=== PATIENT | male | born 1985 | race Two or more races ===

== ENCOUNTER 2018-12-20 18:07 | Emergency (ER) | payer SELFPAY ==
[2018-12-20] MEDS ORDERED: ACETAMINOPHEN 325 MG TABLET PO ONE (19:04)
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
[2018-12-20 19:38] VITALS: BP 112/78
--- NOTE | 2018-12-20 19:53 | RADIOLOGY REPORT (SQ) ---
EXAM DESCRIPTION: CT HEAD WITHOUT; CT FACIAL AREA WITHOUT COMPLETED DATE/TIME: 12/20/2018 7:42 pm REASON FOR STUDY: head trauma; facial trauma COMPARISON: None. TECHNIQUE: Axial images acquired through the brain and facial bones without intravenous contrast. I mages reviewed with bone, brain and subdural windows. Additional sagittal and coronal reconstruction s were generated. Images stored on PACS. All CT scanners at this facility use dose modulation, iterative reconstruction, and/or weight based d osing when appropriate to reduce radiation dose to as low as reasonably achievable (ALARA). [facility]: Dose Right [facility]: CareDose [facility]: Dose Right [facility]: Teradose 4D [facility]: [employer] RADIATION DOSE: CT Rad equipment meets quality standard of care and radiation dose reduction techniq ues were employed. CTDIvol: 53.2 mGy. DLP: 1044 mGy-cm.; CT Rad equipment meets quality standard of c are and radiation dose reduction techniques were employed. CTDIvol: 30.4 mGy. DLP: 606 mGy-cm. mGy. LIMITATIONS: None. FINDINGS: VENTRICLES: Normal size and contour. CEREBRUM: No masses. No hemorrhage. No midline shift. No evidence for acute infarction. Normal gra y/white matter differentiation. No areas of low density in the white matter. CEREBELLUM: No masses. No hemorrhage. No alteration of density. No evidence for acute infarction. EXTRAAXIAL SPACES: No fluid collections. No masses. ORBITS AND GLOBE: No intra- or extraconal masses. Normal contour of globe without masses. CALVARIUM: No fracture. FACIAL BONES: No fracture or dislocation. PARANASAL SINUSES: There is extensive bilateral maxillary sinus, nasal cavity, and ethmoid air cell m ucosal and bony thickening. SOFT TISSUES: No mass or hematoma. OTHER: No other significant finding. IMPRESSION: 1. No acute intracranial pathology. 2. No fracture dislocation of the facial bones. 3. Chronic paranasal sinus disease. EVIDENCE OF ACUTE STROKE: NO. COMMENT: Quality ID # [id number]: Final reports with documentation of one or more dose reduction techniques (e.g., Automated exposure control, adjustment of the mA and/or kV according to patient size, use of iterative reconstruction technique) TECHNICAL DOCUMENTATION: JOB ID: [id number] [employer]- All Rights Reserved Reading location - IP/workstation name: [email or web address]
== END 2018-12-20 20:30 | disposition home or self-care (01) ==
LOC: ER 18:07
DX: S09.90XA Unspecified injury of head, initial encounter (principal); S09.93XA Unspecified injury of face, initial encounter; F10.920 Alcohol use, unspecified with intoxication, uncomplicated; Y00.XXXA Assault by blunt object, initial encounter
CPT/HCPCS: 70450; 70486; 99284